=== PATIENT | male | born 1960 | race Caucasian/White ===

== ENCOUNTER 2023-05-22 09:49 | Outpatient (REF) | payer MEDICAID, SELFPAY | END 2023-05-22 09:50 | disposition home or self-care (01) | LOC: HO.CHCLDS 09:49 | PROVIDERS: Visit Provider Student in an Organized Health Care Education/Training Program | DX: Z00.00 Encounter for general adult medical examination without abnormal findings (principal); R03.0 Elevated blood-pressure reading, without diagnosis of hypertension; Z11.3 Encounter for screening for infections with a predominantly sexual mode of transmission; Z11.59 Encounter for screening for other viral diseases | CPT/HCPCS: 36415; 80048; 86803; 87522; 87536; 87900 ==

== ENCOUNTER 2024-06-24 11:10 | Outpatient (REF) | payer MEDICAID, SELFPAY ==
--- OUTSIDE RECORDS SUMMARY | 2024-06-24 12:31 | XMS_ITS | Encounter Summary ---
Author Organization [employer] Address [address] [facility] 7t [place] [address] Care Team Providers Care Icer Hand Name Role Phone Mana Smith MD Primary Care Provider [phone] Encounter Details Date Type Department Care Team (Late st Contact Info) Description 06/24/2024 Telephone [facility] MEDICINE [address] [place], [place] [phone] Nisha Potts RN [address] [place], [place] [phone] Social History Tobacco Use Types Packs/Day Years Used Date Smoking Tobacco: Former Cigarettes Smokeless Tobacco: Current Alcohol Use Standard Drinks/Week Comments Not Currently 0 (1 standard drink = 0.6 oz pur e alcohol) Depression Answer Date Recorded Patient Health Questionnaire-9 Score 2 06/24/2024 Patient Health Questionnaire-9 Score 2 06/24/2024 Last PHQ-9: Questionnaire Data Not on file 0 06/24/2024 Housing Stability Answer Date Recorded What is your housing situation today? I have sam luna 06/17/[address] you li ve. Do you have problems with any of the following? None of the above 06/17/2024 Food Insecurity Answer Date Recorded Within the past 12 months, y ou worried that your food would run out before you got money to buy more: Never True 06/17/2024 Within the past 12 months,th e food you bought just didn't last and you didn't have enough money to get more: Never True Transportation Answer Date Recorded In the past 12 months, has l ack of transportation kept you from medical appts, meetings, work or from getting things needed for daily living? No 06/17/2024 Utilities Answer Date Recorded In the past 12 months, has t he electric, gas, oil or water company threatened to shut off services in your home? No 06/17/2024 Depression Answer Date Recorded Patient Health Questionnaire-2 Score 1 06/24/2024 Internet Access Answer Date Recorded Internet Access Q1 Yes 06/17/2024 Internet Access Q2 Not on file 06/17/2024 Sex and Gender Information Value Date Recorded Sex Assigned at Male 03/19/2022 10:18 AM EDT Legal Sex Male 10:18 AM EDT Gender Identity Male 03/19/2022 10:18 AM EDT Sexual Orientation Choose not to disclose 2021 10:18 AM EDT documented as of this encounter Miscellaneous Notes * Telephone Encounter - Nisha Potts RN - 06/24/2024 10:40 AM EST Left ear lavage performed per request of PCP during office visit. Pt noted to have impacted cerumento left ear canal. Scant cerumen removed from left ear canal. Pt tolerated procedure well, no dizziness or pain reported. TM partially visualized. Ear lavage terminated per pt request. Pt advised to purchase otc debrox drops and call to schedule ear lavage prn. documented in this encounter Plan of Treatment Not on file documented as of this encounter Visit Diagnoses Not on filedocumented in this encounter Additional Health Concerns Assessment Noted Time PHQ-9 Depression Total Score: 2 06/24/19 25 10:02 AM EST documented as of this encounter Care Teams Icer Hand Relationship Specialty Start Date End Date Mana Smith MD [address] [place] [id number] PCP - General Family Medicine 05/05/12 documented as of this encounter
--- OUTSIDE RECORDS SUMMARY | 2024-06-24 12:31 | XMS_ITS | Encounter Summary ---
Author Organization [employer] Address 75 [facility] 7t [place] [address] Care Team Providers Care Drapery And Upholstery Measurer Name Role Phone Mana Smith MD Primary Care Provider [phone] Encounter Details Date Type Department Care Team (Latest Contact Info) Description 06/24/2024 Travel Social History Tobacco Use Types Packs/Day Years [...] AM EDT documented as of this encounter Plan of Treatment Not on file documented as of this encounter Visit Diagnoses Not on filedocumented in this encounter Additional Health Concerns Assessment Noted Time PHQ-9 Depression Total Score: 2 06/24/19 25 10:02 AM EST documented as of this encounter Care Teams Drapery And Upholstery Measurer Relationship Specialty Start Date End Date Mana Smith MD [address] [place] [id number] PCP - General Family Medicine 05/05/12 documented as of this encounter
--- OUTSIDE RECORDS SUMMARY | 2024-06-24 12:31 | XMS_ITS | Clinical Summary ---
Author Organization [employer] Address [address] [facility] 7t [place] [address] Care Team Providers Care Assistant Office Manager Name Role Phone Mana Smith MD Primary Care Provider [phone] Allergies No known active allergies Medications ibuprofen 800 MG tablet TAKE 1 TABLET (800 MG) BY MOUTH EVERY 8 (EIGHT) HOURS 90 tablet 3 01/09/2024 Active Active Problems Problem Noted Date Diagnosed Date Hepatitis C 06/24/2024 Hypercholesterolemia 06/24/2024 Encounters Date Type Department Care Team Description 06/24/2024 10:15 AM EST Office Visit [facility] [address] [place] [address] Mana Smith MD Chronic hepatitis C without hepatic coma (CMS/HCC) (Primary Dx); Hypercholesterolemia ; Encounter for screening for malignant neoplasm of colon; Screen for STD (sexually transmitted disease); Impacted cerumen of left ear; Encounter for annual wellness visit; AK (actinic keratosis) 06/24/2024 Telephone [facility] MEDICINE [address] [place] [address] Nisha Potts RN 06/24/2024 Travel 06/17/2024 Patient Outreach [facility] [address] [place] [address] Mana Smith MD Pre-visit Planning (SDOH negative, Tobacco screening negative. ) from Last 3 Months Immunizations Name Administration Dates Next Due Influenza injectable quadriv alent preservative free 03/08/2021,03/07/2020,02/18/2018 Pfizer Covid-19 Vaccine 12+ 04/24/2021,,09/15/2020 Tdap 09/20/2016 Social History Tobacco Use Types Packs/Day Years Used Date Smoking Tobacco: Former Cigarettes Smokeless Tobacco: Current Tobacco Cessation:Ready to Q uit: Not Asked; Counseling Given: Not Answered Alcohol Use Standard Drinks/Week Comments Not Currently [...] not to disclose 2021 10:18 AM EDT Last Filed Vital Signs Vital Sign Reading Time Taken Comments Blood Pressure 137/78 06/24/2024 10:00 AM EST Pulse 64 06/24/2024 10:00 AM EST Temperature 36.2 ??C (97.1 ??F) 06/24/2024 10:[address] Respiratory Rate 18 06/24/2024 10:00 AM EST Oxygen Saturation 99% 05/22/2023 9:25 AM EST Inhaled Oxygen Concentration - - Weight 70.3 kg (155 lb) 06/24/2024 10:00 AM EST Height 169.5 cm (5' 6.75 ) 06/24/2024 10:[address] Body Mass Index 24.46 06/24/2024 10:00 AM EST Plan of Treatment Health Maintenance Due Date Last Done Comments CT Colonography 1962 Colonoscopy 1962 Colorectal Cancer Screening 1962 FIT DNA/Cologuard 1962 FIT 1962 FOBT 1962 HIV Screening 1962 Lipid Panel 1962 Sigmoidoscopy 1962 Alcohol/Substance Use Screening 1974 Hepatitis A Vaccines (1 of 2 - Risk 2-dose series) 1981 Pneumococcal Vaccine: 50+ Years (2 of 2 - PCV) 2012 03/03/2009 Zoster Vaccines (1 of 2) 2012 Hepatitis B Vaccines (1 of 3 - Risk 3-dose series) 2022 RSV Patients and Patients Aged 60 years or older (1 - Risk 60-74 years 1-dose series) 2022 COVID-19 Vaccine ( season) 2024 04/24/2021, 10/06/2020, 09/15/2020 Influenza Vaccine (#1) 2024 , 03/07/2020, 02/24/2019, Additional history exists SDOH Screening 06/17/2025 06/17/2024 Depression Screening 06/24/2025 06/24/2024, 06/24/19 25 Tobacco Screening 06/24/2025 06/24/2024 DTaP/Tdap/Td Vaccines (2 - Td or Tdap) 09/20/2026 09/20/2016 HIB Vaccines Aged Out No longer eligi ble based on patient's age to complete this topic HPV Vaccines Aged Out No longer eligi ble based on patient's age to complete this topic IPV Vaccines Aged Out No longer eligi ble based on patient's age to complete this topic Meningococcal Vaccine Aged Out No martir luciano eligible based on patient's age to complete this topic RSV under 20 months Aged Out No longe r eligible based on patient's age to complete this topic Rotavirus Vaccines Aged Out No longer eligible based on patient's age to complete this topic Procedures Procedure Name Priority Date/Time Associated Diagnosis Comments CRYOTHERAPY SKIN LESION Routine 06/24/2024 10:24 AM EST AK (actinic keratosis) from Last 3 Months Results * Cryotherapy, skin lesion (06/24/2024 10:24 AM EST) Mana Alford MD - 06/24/2024 10:24 AM EST Mana Smith MD ? 06/24/2024 10:26 AM Cryotherapy, skin lesion Date/Time: 06/24/2024 10:24 AM Performed by: Mana Smith MD Authorized by: Mana Smith MD ?? Confirmed correct patient, procedure, site, and patient consented: Yes ?? Consent: ??Consent obtained: ??Verbal and written ??Consent given by: ??Patient ??Procedure risks and benefits discussed: Yes ?Patient questions answered: Yes ?Patient agrees, verbalizes understanding, and wants to proceed: Yes ?Educational handouts given: Yes ?Instructions and paperwork completed: Yes ?? [place] protocol: ??Procedure explained and questions answered to patient or proxy's satisfaction: yes ?Relevant documents present and verified: yes ?Test results available: yes ?Imaging studies available: yes ?Required blood products, implants, devices, and special equipment available: yes ?Site/side marked: yes ?Immediately prior to procedure, a time out was called: yes ?Patient identity confirmed: ??Verbally with patient Indications: ??Indications: ??AK Sedation: ??Sedation type: ??None Anesthesia: ??Anesthesia method: ??None Post-procedure details: ??Procedure completion: ??Tolerated us Mana Smith MD DERM PROCEDURE ORDERABLES Final Result from Last 3 Months Insurance Care Teams Assistant Office Manager Relationship Specialty Start Date End Date Mana Smith MD [address] [place] [id number] PCP - General Family Medicine 05/05/12
--- OUTSIDE RECORDS SUMMARY | 2024-06-24 12:31 | XMS_ITS | Encounter Summary ---
Author Organization [employer] Address [address] [facility] [address] 7[address] [place] [address] Care Team Providers Care Traffic Observer Name Role Phone Mana Smith MD Primary Care Provider [phone] Reason for Visit * Reason Onset Date Comments Appointment Request 04/02/2023 Encounter Details Date Type Department Care Team (Late st Contact Info) Description 04/02/2023 Telephone [facility] MEDICINE [address] [place] [address] Mana Smith MD [address] [place] [address] Appointment Request Social History Tobacco Use Types Packs/Day Years Used Date Smoking Tobacco: Never Assessed Depression Answer Date Recorded Patient Health Questionnaire-9 Score 2 05/22/2023 Patient Health Questionnaire-9 Score 2 05/22/2023 Last PHQ-9: Questionnaire Data Not on file 0 05/22/2023 Housing Stability Answer Date Recorded What is your housing situation today? I have sam luna 05/15/[address] you li ve. Do you have problems with any of the following? None of the above 05/15/2023 Food Insecurity Answer Date Recorded Within the past 12 months, y ou worried that your food would run out before you got money to buy more: Never True 05/15/2023 Within the past 12 months,th e food you bought just didn't last and you didn't have enough money to get more: Never True Transportation Answer Date Recorded In the past 12 months, has l ack of transportation kept you from medical appts, meetings, work or from getting things needed for daily living? No 05/15/2023 Utilities Answer Date Recorded In the past 12 months, has t he electric, gas, oil or water company threatened to shut off services in your home? No 05/15/2023 Depression Answer Date Recorded Patient Health Questionnaire-2 Score 2 05/22/2023 Sex and Gender Information Value Date Recorded Sex Assigned at Male 03/19/2022 10:18 AM EDT Legal Sex Male 10:18 AM EDT Gender Identity Male 03/19/2022 10:18 AM EDT Sexual Orientation Choose not to disclose 2021 10:18 AM EDT documented as of this encounter Miscellaneous Notes * Telephone Encounter - Nicoladagmar Juan J - 04/02/2023 11:00 AM EST Tc from pt requesting a f/u appt/ PE , states has not seen PCP in over a year. Pt denies any urgentneeds. Pt last PE was scheduled on 04/10/2021. Please contact at [phone] documented in this encounter Plan of Treatment Not on file documented as of this encounter Visit Diagnoses Not on filedocumented in this encounter Care Teams Traffic Observer Relationship Specialty Start Date End Date Mana Smith MD [address] [place] [id number] PCP - General Family Medicine 05/05/12 documented as of this encounter
--- OUTSIDE RECORDS SUMMARY | 2024-06-24 12:31 | XMS_ITS | Encounter Summary ---
Author Organization [employer] Address [address] [facility] [address] [place] [address] Care Team Providers Care Drainman Name Role Phone Mana Smith MD Primary Care Provider [phone] Reason for Referral * (Routine) - Pending Review Specialty Diagnoses / Procedures Referred By Vira t Referred To Contact Diagnoses AK (actinic keratosis) Procedures Cryotherapy, skin lesion Mana Smith MD [address] [place] [address] Phone: tel: fax: Referral ID Status Reason Start Date Expiration Date V isits Requested Visits Authorized [id number] Pending Review 06/24/2024 06/24/2025 1 1 * Consultation (Routine) - Pending Review Specialty Diagnoses / Procedures Referred By Vira gibson Referred To Contact Gastroenterology Diagnoses Encounter for screening for malignant neoplasm of colon Mana Smith MD [address] [place] [address] Phone: tel: fax: Referral ID Status Reason Start Date Expiration Date Visits Requested Visits Authorized [id number] Pending Review Specialty Services Required 06/24/2024 06/24/2025 1 1 Reason for Visit * Reason Comments Annual Exam Encounter Details Date Type Department Care Team (Late st Contact Info) Description 06/24/2024 10:15 AM EST Office Visit [facility] [address] [place] [address] Mana Smith MD [address] [place] [address] Chronic hepatitis C without hepatic coma (CMS/HCC) (Primary Dx); Hypercholesterolemia; Encounter for screening for malignant neoplasm of colon; Screen for STD (sexually transmitted disease); Impacted cerumen of left ear; Encounter for annual wellness visit; AK (actinic keratosis) Social History Tobacco Use Types Packs/Day Years [...] is your housing situation today? I have sambabita luna 06/17/[address] you [...] AM EDT documented as of this encounter Last Filed Vital Signs Vital Sign Reading Time Taken Comments Blood Pressure 137/78 06/24/2024 10:00 AM EST Pulse 64 06/24/2024 10:00 AM EST Temperature 36.2 ??C (97.1 ??F) 06/24/2024 10:[address] Respiratory Rate 18 06/24/2024 10:00 AM EST Oxygen Saturation - - Inhaled Oxygen Concentration - - Weight 70.3 kg (155 lb) 06/24/2024 10:00 AM EST Height 169.5 cm (5' 6.75 ) 06/24/2024 10:[address] Body Mass Index 24.46 06/24/2024 10:00 AM EST documented in this encounter Progress Notes * Mana Smith MD - 06/24/2024 10:15 AM ESTAssociated Order(s): Cryotherapy, skin lesion Post-Procedure Diagnose(s): AK (actinic keratosis) Subjective Patient ID: Rufino Alvarado is a 63 y.o. male who presents for Annual Exam. Well Adult Physical Patient here for a comprehensive physical exam.The patient reports no problems Do you take any herbs or supplements that were not prescribed by a doctor? no Are you taking calcium supplements? no Are you taking aspirin daily? no Patient ID: Rufino Alvarado is a 63 y.o. male. Cryotherapy, skin lesion Date/Time: 06/24/2024 10:24 AM Performed by: Mana Smith MD Authorized by: Mana Smith MD Confirmed correct patient, procedure, site, and patient consented: Yes Consent: Consent obtained: Verbal and written Consent given by: Patient Procedure risks and benefits discussed: Yes Patient questions answered: Yes Patient agrees, verbalizes understanding, and wants to proceed: Yes Educational handouts given: Yes Instructions and paperwork completed: Yes [place] protocol: Procedure explained and questions answered to patient or proxy's satisfaction: yes Relevant documents present and verified: yes Test results available: yes Imaging studies available: yes Required blood products, implants, devices, and special equipment available: yes Site/side marked: yes Immediately prior to procedure, a time out was called: yes Patient identity confirmed: Verbally with patient Indications: Indications: AK Sedation: Sedation type: None Anesthesia: Anesthesia method: None Post-procedure details: Procedure completion: Tolerated Review of Systems Constitutional: Negative. Respiratory: Negative. Cardiovascular: Negative. Gastrointestinal: Negative. Genitourinary: Negative. Objective Physical Exam Constitutional: Appearance: Normal appearance. HENT: Head: Normocephalic and atraumatic. Right Ear: Tympanic membrane normal. Left Ear: Tympanic membrane normal. Mouth/Throat: Mouth: Mucous membranes are moist. Eyes: Pupils: Pupils are equal, round, and reactive to light. Cardiovascular: Rate and Rhythm: Normal rate and regular rhythm. Pulmonary: Effort: Pulmonary effort is normal. Breath sounds: Normal breath sounds. Abdominal: General: Abdomen is flat. Palpations: Abdomen is soft. Musculoskeletal: General: Normal range of motion. Cervical back: Normal range of motion. Lumbar back: No spasms or tenderness. Skin: General: Skin is warm. Neurological: Mental Status: He is alert. Assessment/Plan Diagnoses and all orders for this visit: Chronic hepatitis C without hepatic coma (CMS/HCC) Comments: Stable Treatment completed Orders: - Hepatitis C Antibody with Reflex to HCV, RNA, Quantitative, Real-Time PCR; Future Hypercholesterolemia Comments: Cont Statin Maintain a low-sodium diet (less than 2 grams per day). Maintain a regular cardiovascular exercise program. Advised to maintain a low-fat, low-cholesterol diet. Counseled regarding importance of weight loss. Counseled re: potential co-morbidities including cardiovascular disease. Orders: - Basic Metabolic Panel; Future - Lipid Panel, Standard; Future - Hepatic Function Panel; Future Encounter for screening for malignant neoplasm of colon - Referral to Gastroenterology; Future - Cologuard?? colon cancer screening Screen for STD (sexually transmitted disease) - HIV-1/2 Antigen and Antibodies, Fourth Generation, with Reflexes; Future Impacted cerumen of left ear Comments: Disimpaction done in the clinic documented in this encounter Plan of Treatment Scheduled Orders Name Type Priority Associated Diagnoses Orde r Schedule Basic Metabolic Panel Lab Routine Hypercholesterolemia Expected: 06/24/2024 (Approximate), Expires: 06/24/2025 Lipid Panel, Standard Lab Routine Hypercholesterolemia Expected: 06/24/2024 (Approximate), Expires: 06/24/2025 Hepatic Function Panel Lab Routine Hypercholesterolemia Expected: 06/24/2024 (Approximate), Expires: 06/24/2025 Cologuard?? colon cancer screening Lab Routine Encounter for screening for malignant neoplasm of colon Ordered: 06/24/2024 Hepatitis C Antibody with Reflex to HCV, RNA, Quantitative, Real-Time PCR Lab Routine Chronic hepatitis C without hepatic coma (CMS/HCC) Expected: 06/24/2024, Expires: 06/24/2025 HIV-1/2 Antigen and Antibodies, Fourth Generation, with Reflexes Lab Routine Screen for STD (sexually transmitted disease) Expected: 06/24/2024 (Approximate), Expires: 06/24/2025 Cryotherapy, skin lesion Dermatology Routine AK (actinic keratosis) Expected: 06/24/2024 (Approximate), Expires: 06/24/2025 Scheduled Referrals Name Type Priority Associated Diagnoses Order Schedule Referral to Gastroenterology Outpatient Referral Routine Encounter for screening for malignant neoplasm of colon Expected: 06/24/2024 (Approximate), Expires: 06/24/2025 documented as of this encounter Procedures Procedure Name Priority Date/Time Associated Diagnosis Comments CRYOTHERAPY SKIN LESION Routine 06/24/2024 10:24 AM EST AK (actinic keratosis) documented in this encounter Results * Cryotherapy, skin lesion (06/24/2024 10:24 AM EST) Narrative Mana Smith MD - 06/24/2024 10:24 AM EST Mana [...] Yes ?Instructions and paperwork completed: Yes ?? [place] protocol: ??Procedure explained and questions answered to [...] method: ??None Post-procedure details: ??Procedure completion: ??Tolerated Result [facility] Mana Smith MD DERM PROCEDURE ORDERABLES Final Result documented in this encounter Visit Diagnoses Diagnosis Chronic hepatitis C without hepatic coma (CMS/HCC)- Primary Hypercholesterolemia Pure hypercholesterolemia Encounter for screening for malignant neoplasm of colon Screen for STD (sexually transmitted disease) Screening examination for venereal disease Impacted cerumen of left ear Impacted cerumen Encounter for annual wellness visit AK (actinic keratosis) Actinic keratosis documented in this encounter Additional Health Concerns Assessment Noted Time PHQ-9 Depression Total Score: 2 06/24/19 25 10:02 AM EST documented as of this encounter Care Teams Drainman Relationship Specialty Start Date End Date Mana Smith MD [address] [place] [id number] PCP - General Family Medicine 05/05/12 documented as of this encounter
--- OUTSIDE RECORDS SUMMARY | 2024-06-24 12:32 | XMS_ITS | Encounter Summary ---
Author Organization [employer] Address 75 [facility] 7t [place] [address] Care Team Providers Care Wood Milling Machine Hand Name Role Phone Mana Smith MD Primary Care Provider [phone] Encounter Details Date Type Department Care Team (Late st Contact Info) Description 05/23/2023 Orders Only [facility] [address] [place], [place] [phone] Mana Smith MD [address] [place] [address] Social History Tobacco Use Types Packs/Day Years [...] on file documented as of this encounter Procedures Procedure Name Priority Date/Time Associated Diagnosis Comments HEPATITIS C VIRAL RNA, QUANTITATIVE, REAL-TIME PCR Routine 05/23/2023 9:52 AM EST documented in this encounter Results * Hepatitis C Viral RNA, Quantitative, Real-Time PCR (05/23/2023 9:52 AM EST) Hepatitis C Viral Load <15 NOT DETECTED NOT DETECTED IU/mL [facility] HCV Log PCR <1.18 NOT DETECTED NOT DETECTED Log IU/mL [facility] Comment:This test was perfor med using Real-Time Polymerase ChainReaction.Reportable Range: 15 IU/mL to 100,000,000 IU/mL(1.18 Log IU/mL to 8.00 Log IU/mL).The analytical performance characteristics of thisassay have been determined by [employer].The modifications have not been cleared or approved bythe FDA. This assay has been validated pursuant to theCLIA regulations and is used for clinical purposes.For more information on this test, go to:http://education.[employer]/faq/ZTM57u2(This link is being provided for informational/educational purposes only.)THIS TEST WAS PERFORMED AT:[facility] [place] [phone] LEWIS MD 05/23/2023 9:52 AM EST 05/23/2023 9:52 AM EST us Mana Smith MD LAB BLOOD ORDERABLES Final Resul t [facility] [address] [place] [address] [phone] documented in this encounter Visit Diagnoses Not on filedocumented in this encounter Additional Health Concerns Assessment Noted Time PHQ-9 Depression Total Score: 2 05/22/19 24 9:27 AM EST documented as of this encounter Care Teams Wood Milling Machine Hand Relationship Specialty Start Date End Date Mana Smith MD [address] [place] [address] PCP - General Family Medicine 05/05/12 documented as of this encounter
--- OUTSIDE RECORDS SUMMARY | 2024-06-24 12:32 | XMS_ITS | Encounter Summary ---
Author Organization [employer] Address [address] [facility] [address] [place] [address] Care Team Providers Care Air Carrier Operations Inspector Name Role Phone Mana Smith MD Primary Care Provider [phone] Reason for Visit * Reason Comments Pre-visit Planning SDOH negative, Tobac co screening negative. Encounter Details Date Type Department Care Team ([facility] st Contact Info) Description 06/17/2024 Patient Outreach [facility] [address] [place], [place] [id number] Mana Smith MD [address] [place], [place] [id number] Pre-visit Planning (SDOH negative, Tobacco screening negative. ) Social History Tobacco Use Types Packs/Day Years [...] Recorded Patient Health Questionnaire-2 Score 2 05/22/2023 Internet Access Answer Date Recorded Internet Access Q1 Yes 06/17/2024 Internet Access Q2 Not on file 06/17/2024 Sex and Gender Information Value Date Recorded Sex Assigned at Male 03/19/2022 10:18 AM EDT Legal Sex Male 10:18 AM EDT Gender Identity Male 03/19/2022 10:18 AM EDT Sexual Orientation Choose not to disclose 2021 10:18 AM EDT documented as of this encounter Progress Notes * Delilah Mireles - 06/17/2024 9:26 AM EST SUNDAR Salazar placed successful outbound call to patient for pre-visit planning. Patient name and confirmed. Patient confirms appt date and time, and has transportation arrangements. Biggest concern for appointment at this time is no concerns. Appropriate screenings completed in anticipation ofappointment. documented in this encounter Plan of Treatment Not on file documented as of this encounter Visit Diagnoses Not on filedocumented in this encounter Additional Health Concerns Assessment Noted Time PHQ-9 Depression Total Score: 2 05/22/19 24 9:27 AM EST documented as of this encounter Care Teams Air Carrier Operations Inspector Relationship Specialty Start Date End Date Mana Smith MD [address] [place] [phone] PCP - General Family Medicine 05/05/12 documented as of this encounter
--- OUTSIDE RECORDS SUMMARY | 2024-06-24 12:32 | XMS_ITS | Encounter Summary ---
Author Organization [employer] Address [address] [facility] [address] [place] [address] Care Team Providers Care Manager Reliability Name Role Phone Mana Smith MD Primary Care Provider [phone] Reason for Visit * Reason Onset Date Comments Results 06/28/2023 Encounter Details Date Type Department Care Team (Late st Contact Info) Description 06/28/2023 Telephone [facility] MED[facility]INE [address] [place] [address] Mana Smith MD [address] [place] [address] Results Social History Tobacco Use Types Packs/Day Years [...] encounter Miscellaneous Notes * Telephone Encounter - Samanta Dunn RN - 06/28/2023 4:10 PM EST Returned call to pt regarding message below. Pt informed of normal lab results. Pt verbalized understanding. * Telephone Encounter - Hao Graham - 06/28/2023 8:31 AM EST TC from pt requesting call back regarding Results. Type of results: Lab works Date when done: 05/22/2023 Facility: [facility] documented in this encounter Plan of Treatment Not on file documented as of this encounter Visit Diagnoses Not on filedocumented in this encounter Additional Health Concerns Assessment Noted Time PHQ-9 Depression Total Score: 2 05/22/19 24 9:27 AM EST documented as of this encounter Care Teams Manager Reliability Relationship Specialty Start Date End Date Mana Smith MD [address] [place] [id number] PCP - General Family Medicine 05/05/12 documented as of this encounter
[2024-06-24 14:24] LABS: Alanine Aminotransferase 18 U/L (0-40); Albumin Level 4.2 g/dL (3.5-5.0); Alkaline Phosphatase 46 U/L (39-117); Anion Gap 5 (12-20); Aspartate Amino Transferase 20 U/L (5-37); Bilirubin Direct 0.1 mg/dL (0.0-0.5); Bilirubin Total 0.4 mg/dL (0.0-1.0); Blood Urea Nitrogen 15 mg/dL (9-16); Calcium 8.5 mg/dL (8.4-10.2); Carbon Dioxide 27 mmol/L (22-29); Chloride 110 mmol/L (96-108); Cholesterol 168 mg/dL (<200); Estimated Glomerular Filt Rate > 60; Glucose Random 86 mg/dL (60-115); HDL Cholesterol 38 mg/dL (>40); LDL Cholesterol Calculated 117 mg/dL (<100); Potassium 4.2 mmol/L (3.3-5.1); Sodium 138 mmol/L (135-145); Total Protein 7.3 g/dL (6.5-8.0); Triglycerides 68 mg/dL (<150)
[2024-06-25 07:40] LABS: HIV AB/AG Nonreactive (Nonreactive); HIV Num 1 0.07 S/CO (0.00-0.99); ~HepC Num1 15.05 S/CO (0.00-0.79); ~Hepatitis C Antibody Reactive (Nonreactive)
[2024-06-26 20:53] LABS: HCV Log PCR <1.18 NOT DETECTED Log IU/mL (NOT DETECTED); HepC Viral Load <15 NOT DETECTED IU/mL (NOT DETECTED)
== END 2024-06-24 11:11 | disposition home or self-care (01) ==
LOC: HO.CHCLDS 11:10
PROVIDERS: Visit Provider Student in an Organized Health Care Education/Training Program
DX: Z11.3 Encounter for screening for infections with a predominantly sexual mode of transmission (principal); B18.2 Chronic viral hepatitis C; E78.00 Pure hypercholesterolemia, unspecified
CPT/HCPCS: 36415; 80048; 80061; 80076; 86803; 87389; 87522

== ENCOUNTER 2024-10-13 09:47 | Outpatient (AMB) | payer MEDICAID, SELFPAY ==
--- NOTE | 2024-10-13 09:51 | MHC.OFFVIS ---
Vital Signs 10/13/24 09:58 Height 5 ft 7 in Weight 147 lb 11.355 oz BMI 23.1 BP 138/77 Blood Pressure Location Lt brachial Position Sitting Pulse 83 Intake Visit Reasons: Colonoscopy Screening Intake Note: Rufino presents in the office as a colonoscopy screening. CC: He states that cancer runs in his family but NOT colon. Kory was his last Dr for GI. States that he has hepatitis and did the treatment twice that eventually worked. He states that he has weird pains on the RUQ. He was told to not sleep on that side. States that is is more of a bothering feeling other than a pain and he doesnt notice any real difference if he eats - sometimes it bothers him after. Flight Data Technician Required: No Allergies No Known Allergies [No Known Allergies*] Allergy (Unverified 10/13/24 09:56) HPI HPI Colonoscopy Screening: Details: 63-YEAR-OLD MALE HERE FOR PREPROCEDURAL MEETING to discuss a screening colonoscopy. He is referred by [facility]. PMX High cholesterol Hepatitis C Actinic keratosis History of peptic ulcer disease-caused by H pylori 1999 (eradicated on repeat EGD 2019) History of tubular adenoma * SURGICAL HISTORY Per ulcer repair RIGHT INGUINAL hernia repair Dermal cyst removals Colonoscopy-2020 Kory= negative study but had a prior history of TA EGD * ALLERGIES: NKDA * [employer] LABS: Laboratory Tests 06/24/24 11:11 Estimated GFR > 60 Total Bilirubin 0.4 AST 20 ALT 18 Alkaline Phosphatase 46 Laboratory Tests 06/24/24 11:11 Hep C Viral Load <15 NOT DETECTED Hep C Viral Load Log <1.18 NOT DETECTED TODAY'S VISIT This is his 3rd colonoscopy. No bowel or upper GI problems. He denies any cardiac or respiratory problems. No prior anesthesia or sedation problems. He has a hx of Hep C but negative viral load . He has a hx of TA's. [facility] Medical History History of Helicobacter pylori infection Perforated ulcer Surgical History H/O esophagogastroduodenoscopy H/O colonoscopy H/O removal of cyst H/O right inguinal hernia repair Family History (Updated 10/13/24 @ 09:59 by INDIGO Gauthier) Brother Throat cancer Liver cancer Lung cancer Brother Throat cancer Liver cancer Lung cancer Brother Throat cancer Liver cancer Lung cancer Mother Throat cancer Liver cancer Lung cancer Sister Throat cancer Liver cancer Lung cancer Other Cirrhosis Review of Systems Const Denies fatigue, Denies fever(s), Denies night sweats, Denies poor appetite and Denies weight loss Eyes Details: glasses Reports requires corrective lenses ENT Reports Normal hearing present, Denies dental pain, Denies dysphagia, Denies hearing loss, Denies mouth pain, Denies odynophagia, Denies throat swelling, Denies tongue swelling and Reports other (Dentition adequate) Card Reports no additional complaints Resp Reports no additional complaints GI Details: Reports abdominal pain (Chronic for 15 years a feeling of pressure when he eats on the right side), Denies melena, Denies bloating, Denies hematochezia, Denies constipation, Denies GI cramping, Denies dysphagia, Denies excessive flatus, Denies early satiety, Denies heartburn, Denies diarrhea, Denies nausea, Denies odynophagia, Denies vomiting and Denies hematemesis Skin/Breast Denies pruritus, Denies lesions, Denies rash and Denies jaundice Neuro Reports Normal hearing present and Denies Abnormal speech present Endo Denies fatigue Aller/Immun Denies throat swelling and Denies tongue swelling Physical Exam Vital Signs: Last Vital Signs Pulse 83 10/13/24 09:58 BP 138/77 10/13/24 09:58 BMI result Body Mass Index 23.1 Const General: cooperative, no acute distress, well developed and well groomed Nutritional Appearance: average body habitus and well nourished Orientation/consciousness: oriented to person, oriented to place and oriented to time Limitations: No language barrier HEENT Head: Yes normocephalic and Yes atraumatic Eyes General: appearance normal, both eyes and all related structures Pupils: Equal, round and reactive pupils present Neck Neck: Yes normal visual inspection and Yes no lymphadenopathy Thyroid: Thyroid normal Resp Effort & Inspection: normal respiratory effort and able to speak in complete sentences Auscultation: clear to auscultation bilaterally Cardio Rate: regular rate Rhythm: regular rhythm Heart sounds: Normal, physiologic split S2 sound present Peripheral pulses: radial pulses present and posterior tibial pulses present GI Inspection: No distended and No Abdominal panniculus present Palpation (GI): Soft to palpation, nontender, no guarding, not rigid and No hepatosplenomegaly present Percussion: Yes normal to percussion Auscultation: normal bowel sounds Rectal Exam - Male: Yes deferred Skin General skin exam: no rashes or lesions noted, turgor normal, skin not dry, no jaundice, No spider nevi and no striae Rashes: no rashes Nails: normal Neuro General: oriented to person, oriented to place and oriented to time Cranial nerves: Yes Equal, round and reactive pupils present and Yes Normal hearing present Speech: No Abnormal speech present Extrem General: Yes normal to inspection, No clubbing, No cyanosis and No edema Psych Appearance: grossly normal and well kempt Mental Status: mental status grossly normal Speech and movement: Normal speech and movement present Affect: normal affect Attitude: cooperative Thought process: Normal thought process present and not confabulating Thought content: Normal thought content present Insight: Good insight present (Psych) Judgement: Good judgement present (Psych) Assessment & Plan Assessment & Plan (1) Pre-op examination: Code(s): Z01.818 - Encounter for other preprocedural examination Category: Medical (2) Tubular adenoma of colon: Comment: Prior past history not on record but recorded in endoscopy note from 2019 Code(s): D12.6 - Benign neoplasm of colon, unspecified Category: Medical (3) Hepatitis C: Comment: Negative viral load 06/2024 Code(s): B19.20 - Unspecified viral hepatitis C without hepatic coma Category: Medical Plan This is his 3rd colonoscopy. No bowel or upper GI problems. He denies any cardiac or respiratory problems. No prior anesthesia or sedation problems. He has a hx of Hep C but negative viral load . He has a hx of TA's. Orders: Orders Colonoscopy - GI Use Only Today D12.6 - Benign neoplasm of colon, unspecified, Z01.818 - Encounter for other preprocedural examination Medications: New peg 3350-electrolytes 236-22.74-6.74 -5.86 gram (Golytely) until fecal effluent is clear; do not exceed a total volume of 2,000 mL 240 mL PO Q10M 4,000 mL 0RF 1 day Z12.11 - Encounter for screening for malignant neoplasm of colon Coding Level of Care Code New Pt Level 3 ([id number]) Diagnoses Pre-op examination Z01.818 Tubular adenoma of colon D12.6 Hepatitis C B19.20
[2024-10-13 09:58] VITALS: BP 138/77; PULSE 83; BMI 23.1
--- OUTSIDE RECORDS SUMMARY | 2024-10-13 10:24 | XMS_ITS | Clinical Summary ---
Author Organization [employer] Address [address] [facility] [address] [place] [address] Care Team Providers Care Tensioning Machine Operator Name Role Phone Mana Smith MD Primary Care Provider [phone] Allergies No known active allergies Medications ibuprofen 800 MG tablet TAKE 1 TABLET (800 MG) BY MOUTH EVERY 8 (EIGHT) HOURS 90 tablet 3 01/09/2024 Active Active Problems Problem Noted Date Diagnosed Date Hepatitis C 06/24/2024 Hypercholesterolemia 06/24/2024 Encounters Date Type Department Care Team Description 07/31/2024 Population Health Risk Score [facility] (C3) Department [address] [id number] Provider, Population Health Generic 07/16/2024 Telephone [facility] MEDICINE [address] [place] [address] Mana Smith MD FYI from Last 3 Months Immunizations Immunization Administration Dates Next Due Influenza injectable quadriv [...] FIT DNA/Cologuard 1962 FIT 1962 FOBT 1962 Sigmoidoscopy 1962 Disability Screening 1962 Alcohol/Substance Use Screening 1974 Hepatitis A Vaccines (1 of 2 - Risk 2-dose series) 1981 Pneumococcal Vaccine: 50+ Years (2 of 2 - PCV) 03/03/2010 03/03/2009 Zoster Vaccines (1 of 2) 2012 [...] (2 - Td or Tdap) 09/20/2026 09/20/2016 Lipid Panel 06/24/2029 06/24/2024 HIV Screening Completed 06/24/2024 HIB Vaccines Aged Out No longer eligi ble based on patient's age to complete this topic HPV Vaccines Aged Out No longer eligi ble based on patient's age to complete this topic IPV Vaccines Aged Out No longer eligi ble based on patient's age to complete this topic Meningococcal B Vaccine Aged Out No l onger eligible based on patient's age to complete [...] Procedure Name Priority Date/Time Associated Diagnosis Comments HIV 1/2 ANTIGEN/ANTIBODY, FOURTH GENERATION W/RFL Routine 06/24/2024 11:11 AM EST Screen for STD (sexually transmitted disease) LIPID PANEL, STANDARD Routine 06/24/2024 11:11 AM EST Hypercholesterolemia from Last 3 Months or Most Recently Relevant to Health Maintenance Results * HIV-1/2 Antigen and Antibodies, Fourth Generation, with Reflexes (06/24/2024 11:11 AM EST) HIV AB/AG Nonreactive Nonreactive [facility] Comment:HIV-1 p24 Ag and/or HIV-1/HIV-2 Ab not detected.A test result that is nonreactive does not exclude thepossibility of exposure to or infection with HIV-1 and/orHIV-2. Nonreactive results in this assay for individualswith prior exposure to HIV-1 and/or HIV-2 may be due toantigen and antibody levels that are below the limit ofdetection of this assay.[employer] HIV Ag/Ab Combo assay result andsupplemental assay results should be interpreted inconjunction with the patient's clinical presentation,history and other laboratory results. If the results areinconsistent with clinical evidence, additional testing issuggested to confirm the result. Blood Venous blood specimen / Unknown 06/24/2024 11:11 AM EST 06/24/2024 1:57 PM EST us Mana Smith MD LAB BLOOD ORDERABLES Final Resul t [facility] [address] [place] [address] [phone] * (ABNORMAL) Lipid Panel, Standard (06/24/2024 11:11 AM EST) Triglycerides 68 <150 mg/dL [facility] Comment:Desirable Triglyceri de: less than 150 mg/dLBorderline High Triglyceride 150-199 mg/dLHigh Triglyceride: 200-499 mg/dLVery High Triglyceride: greater than or equal to 5OO mg/dL Cholesterol 168 <200 mg/dL [facility] Comment:Desirable Cholestero l: less than 200 mg/dLBorderline High Cholesterol: 200-239 mg/dLHigh Cholesterol: greater than 239 mg/dL LDL Cholesterol Calculated 117(H) <100 mg/dL [facility] Comment:Desirable LDL: less than 100 mg/dLNear Optimal/Above Optimal LDL: 110- 129 mg/dLBorderline High LDL: 130-159 mg/dLHigh LDL: 160-189 mg/dLVery High LDL: greater than or equal to 190 mg/dL HDL Cholesterol 38(L) >40 mg/dL [facility] Comment:Desirable HDL: great er than 40 mg/dL Note: This HDL assay may give artificially low results in patients with liver disease. Blood Venous blood specimen / Unknown 06/24/2024 11:11 AM EST 06/24/2024 1:57 PM EST us Mana Smith MD LAB BLOOD ORDERABLES Final Resul t [facility] [address] [place] [address] [phone] from Last 3 Months or Most Recently Relevant to Health Maintenance Insurance [employer] Care Teams Tensioning Machine Operator Relationship Specialty Start Date End Date Mana Smith MD [address] [place] [address] PCP - General Family Medicine 05/05/12
== END 2024-10-13 10:21 | disposition home or self-care (01) ==
LOC: HO.HGI 09:48
PROVIDERS: PCP Student in an Organized Health Care Education/Training Program; Visit Provider Nurse Practitioner
DX: Z01.818 Encounter for other preprocedural examination (principal); Z12.11 Encounter for screening for malignant neoplasm of colon; Z86.0101 Personal history of adenomatous and serrated colon polyps; B19.20 Unspecified viral hepatitis C without hepatic coma
CPT/HCPCS: 99203

== ENCOUNTER → 2024-10-13 09:47 | Outpatient (BNVA) | payer MEDICAID, SELFPAY | PROVIDERS: PCP Student in an Organized Health Care Education/Training Program; Visit Provider Nurse Practitioner | DX: Z01.818 Encounter for other preprocedural examination (principal); D12.6 Benign neoplasm of colon, unspecified; B19.20 Unspecified viral hepatitis C without hepatic coma | CPT/HCPCS: 99212 ==